=== PATIENT | female | born 1975 | race Caucasian/White ===

== ENCOUNTER 2016-10-10 05:54 | Emergency (ER) | payer OTHER ==
[~2016-10-10] VITALS: Ht 162.6 cm; Wt 108.9 kg
[~2016-10-10 05:54] MED LIST: ABILIFY 15MG15 MG PO; ATIVAN0.5 MG PO; COGENTIN1 MG/ML PO; CYMBALTA 30 MG30 MG PO; CYMBALTA60 MG PO; METFORMIN HCL500 MG PO; MIRTAZAPINE15 MG PO; PEPCID40 MG PO; QUETIAPINE FUM100 MG PO; QUETIAPINE FUMA25 MG PO; REMERON 15MG TA15 MG PO; SEROQUEL 100MG100 MG PO; SEROQUEL 25MG25 MG PO; SERTRALINE HYD100 MG PO; TRAZODONE50 MG PO
--- NOTE | 2016-10-10 06:21 | ED CARDIAC/CP/PALPITATIONS ---
History of Present Illness General Chief Complaint: Chest Pain Stated Complaint: " WOKE WITH CP,+N, AT HOME HR 149 AND CONCERN" Source: patient Exam Limitations: no limitations Vital Signs & Intake/Output Vital Signs & Intake/Output Vital Signs Date Time Temp Pulse Resp B/P Pulse O2 O2 Flow FiO2 Ox Delivery Rate 10/10 0836 97.3 119 20 120/81 10/10 0750 98.5 119 18 127/85 98 10/10 0614 97 Room Air Room Air 10/10 0611 97.1 122 22 135/79 98 Room Air Reconcile Medications DULOXETINE HCL (Cymbalta) 60 MG CAPSULE.DR 1 CAP PO DAILY STABL E MOOD ( Reported) Metformin Hydrochloride (Metformin HCl) 500 MG TAB 2 TAB PO 1/2 HR AC SUGAR ( Reported) Mirtazapine (Remeron 15MG Tab) 15 MG TABLET 0.5 TAB PO QPM DEPRESSION ( Reported) Quetiapine Fumarate (Seroquel) 25 MG TABLET 1 TAB PO QAM MENTAL HEALTH ( Reported) Quetiapine Fumarate (Seroquel) 100 MG TABLET 1 TAB PO QPM MENTAL HEALTH/SLEEP (Reported) Triage Note: 41YO FEMALE TO RM 9 W/CO INCREASED HEART RATE THAT AWOKE HER THIS AM. STATES SHE "SUFFERS FROM ANXIETY AND IS UNDER A LOT OF STRESS" DENIES ANY CP. ALSO STATES SHE "WAS ADJUSTED BY CHIROPRACTER YESTERDAY AND FEELS HE MAY HAVE DONE SOMETHING TO HER HEART" CM = 120 W/NO ECTOPY Triage Nurses Notes Reviewed? yes Onset: Abrupt Duration: hour(s):, intermittent Timing: recent history Quality/Severity: moderate Location: central Radiation: no radiation Activities at Onset: none Prior Chest Pain/Card Workup: PT WITH FREQUENT PANIC ATTACKS Modifying Factors: Improves With: rest. : No Patient currently breastfeeds: No HPI: 41 yo woman h/o panic disorder/anxiety presents with sudden onset of palpitations. "I awoke and felt my heart racing... I've had this before... I have anxiety." She notes no chest pain, dyspnea, wheezing, dizziness. She is otherwise well. (TOY RIOS,RIGO Ramos) Allergies Coded Allergies: penicillin V (Severe, THROAT CLOSURE 10/10/16) (GARY RIOS,ZIA Chavez) Past History Travel History Traveled to [place] past 21 day No Medical History Any Pertinent Medical History? see below for history Psychiatric: anxiety Endocrine: diabetes History of CDIFF: No Surgical History Surgical History: none Psychosocial History Who do you live with Family What is your primary language Bel[place]ian Tobacco Use: Never used Family History Hx Contributory? No (TOY RIOS,RIGO Ramos) Review of Systems Review of Systems Constitutional: Reports: no symptoms. EENTM: Reports: no symptoms. Respiratory: Reports: no symptoms. Cardiovascular: Reports: no symptoms. GI: Reports: no symptoms. Genitourinary: Reports: no symptoms. Musculoskeletal: Reports: no symptoms. Skin: Reports: no symptoms. Neurological/Psychological: Reports: no symptoms. Hematologic/Endocrine: Reports: no symptoms. Immunologic/Allergic: Reports: no symptoms. All Other Systems: Reviewed and Negative (TOY RIOS,RIGO Ramos) Physical Exam Physical Exam General Appearance: well developed/nourished, mild distress Head: atraumatic, normal appearance Eyes: Bilateral: normal appearance. Ears, Nose, Throat: normal pharynx, normal ENT inspection Neck: normal inspection, supple, full range of motion Respiratory: normal breath sounds, chest non-tender, no respiratory distress, quiet respiration, lungs clear Cardiovascular: tachycardic, regular Gastrointestinal: normal bowel sounds, soft, non-tender, no organomegaly Back: normal inspection, normal range of motion Extremities: normal inspection, normal capillary refill, normal range of motion, no edema Neurologic/Psych: no motor/sensory deficits, awake, alert, oriented x 3 Skin: intact, normal color, warm/dry Core Measures ACS in differential dx? No Severe Sepsis Present: No Septic Shock Present: No (TOY RIOS,RIGO Ramos) Progress Differential Diagnosis: panic attack, palpitations... I doubt myocardial ischemia. Plan of Care: Orders Procedure Date/time Status Heart Healthy Diet 10/10 L Active TROPONIN LEVEL 10/10 0930 Complete EKG 10/10 0930 Active THYROID STIMULATING HORMONE 10/10 0701 Complete TROPONIN LEVEL 10/10 0637 Complete PARTIAL THROMBOPLASTIN TIME 10/10 0637 Complete PROTHROMBIN TIME 10/10 0637 Complete LIPASE 10/10 0637 Complete HEPATIC FUNCTION PANEL 10/10 0637 Complete D-DIMER 10/10 0637 Complete CBC WITHOUT DIFFERENTIAL 10/10 0637 Complete BASIC METABOLIC PANEL 10/10 0637 Complete AMYLASE 10/10 0637 Complete EKG 10/10 0557 Active Laboratory Tests 10/10/16 0931: Troponin I < 0.01 10/10/16 0701: Anion Gap 11, Estimated GFR > 60, BUN/Creatinine Ratio 18.8, Glucose 242 H, Calcium 9.0, Total Bilirubin 0.2, Direct Bilirubin 0.2, AST 16, ALT 28, Alkaline Phosphatase 98, Troponin I < 0.01, Total Protein 6.8, Albumin 3.7, Amylase 37, Lipase 154, TSH 8.750 H, PT 10.0, INR 0.95, APTT 28, D-Dimer < 200, CBC w Diff NO MAN DIFF REQ, RBC 4.16 L, MCV 73.5 L, MCH 23.6 L, RDW 18.8 H, MPV 8.3, Gran % 51.4, Lymphocytes % 39.0, Monocytes % 6.4, Eosinophils % 2.7, Basophils % 0.5, Absolute Granulocytes 4.1, Absolute Lymphocytes 3.1, Absolute Monocytes 0.5 , Absolute Eosinophils 0.2, Absolute Basophils 0, PUBS MCHC 32.1 L 10/10/16 0648: TSH Cancelled Initial ED EKG: sinus tach, no acute changes. Hand-Off Endorsed To: ZIA VEGA MD Endorsed Time: 0700 Pending: labs, Xray (TOY RIOS,RIGO Ramos) Repeat EKG: unchanged Rhythm Strip: normal sinus rhythm Comments: Patient and her have been updated on results. Questions have been answered. Patient feels comfortable going home. Patient will follow-up with cardiology as an outpatient. Since her heart rate came down after she was given her morning dose of her beta nenita. (ZIA VEGA MD) Departure Departure Condition: Stable Departure Forms: Customer Survey General Discharge Information Comments 10/10/16, 7am... pt with sinus tach on ekg... otherwise benign exam... pt notes prior history with etiology being panic disoder. Labs/cxr signed out to Dr. Vega. Ativan 1mg po given. (TOY RIOS,RIGO Ramos) Departure Disposition: HOME OR SELF CARE Clinical Impression Primary Impression: Palpitations Secondary Impressions: Chest pain, unspecified Qualifiers: Chest pain type: other chest pain Qualified Code: R07.89 - Other chest pain Referrals: RANJITH MD,TANG (PCP/Family) Merritt KEANE MD Additional Instructions: FOLLOW UP WITH DR. KEANE RETURN IF SYMPTOMS WORSEN OR FOR ANY CONCERNS (GARY RIOS,ZIA Chavez) Critical Care Note Critical Care Note Critical Care Time: non-applicable (TOY RIOS,RIGO Ramos)
[2016-10-10 07:28] LABS: ABSOLUTE BASOPHIL COUNT 0 /CUMM (0.0-0.2); ABSOLUTE EOSINOPHIL COUNT 0.2 /CUMM (0.0-0.7); ABSOLUTE GRANULOCYTE CT 4.1 /CUMM (1.4-6.5); ABSOLUTE LYMPH COUNT 3.1 /CUMM (1.2-3.4); ABSOLUTE MONOCYTE COUNT 0.5 /CUMM (0.10-0.60); BASOPHIL % 0.5 % (0.0-2.0); EOSINOPHIL % 2.7 % (0-5); GRANULOCYTE % 51.4 % (42.2-75.2); HEMATOCRIT 30.6 % (37-47); MEAN CORPUSCULAR HGB 23.6 PG (27.0-31.0); MEAN CORPUSCULAR HGB CONC 32.1 G/DL (33.0-37.0); MEAN CORPUSCULAR VOLUME 73.5 FL (81.0-99.0); MEAN PLATELET VOLUME 8.3 FL (7.4-10.4); PLATELET COUNT 397 /CUMM (130-400); RBC DISTRIBUTION WIDTH 18.8 % (11.5-14.5); RED BLOOD CELL CT 4.16 /CUMM (4.20-5.40)
--- NOTE | 2016-10-10 08:08 | RADIOLOGY REPORT ---
EXAMINATION: XR PORTABLE CHEST CLINICAL INFORMATION: Palpitations COMPARISON: Prior chest May 2006 TECHNIQUE: Portable AP 80 degrees upright view of the chest was obtained. FINDINGS: Low lung volumes likely due to suboptimal inspiration No significant abnormality is noted involving the heart, lungs, mediastinum, bony thorax or soft tissues. IMPRESSION: Unremarkable examination.
[2016-10-10 08:30] LABS: PTT 28 SEC (25-37)
[2016-10-10 11:20] VITALS: BP 118/68
== END 2016-10-10 11:36 ==
LOC: ERH 05:54
PROVIDERS: Pediatrics
DX: R00.2 Palpitations (principal); R07.9 Chest pain, unspecified; F41.9 Anxiety disorder, unspecified
CPT/HCPCS: 93005; 93010; 96374; J1885